=== PATIENT | female | born 1985 | race Caucasian/White ===

== ENCOUNTER 2017-07-01 13:22 | Day surgery (SDC) | payer OTHER ==
[2017-07-01] MEDS ORDERED: PROPOFOL 40 ML (14:20)
[2017-07-01] MEDS ORDERED: LIDOCAINE 100 MG SYRINGE (14:20)
== END 2017-07-01 17:23 | disposition home or self-care (01) ==
LOC: GIL 13:22
DX: K29.30 Chronic superficial gastritis without bleeding (principal); K21.0 Gastro-esophageal reflux disease with esophagitis; K25.9 Gastric ulcer, unspecified as acute or chronic, without hemorrhage or perforation; J45.909 Unspecified asthma, uncomplicated
CPT/HCPCS: 43239; 84703; 88305; 88312; 88313

== ENCOUNTER 2018-02-11 09:51 | Inpatient (IN) | payer OTHER ==
[~2018-02-11 09:51] MED LIST: CEFAZOLIN 1 GM INJ; CEFAZOLIN 2 GM/50 ML (PMX) 50 ML IVPB; SOD CHLORIDE 0.9% 1,000 ML IV
[2018-02-11 10:43] LABS: ADD MAN DIFF? NO
[2018-02-11 10:47] LABS: WHITE BLOOD COUNT 9.6 10^3/ul (4.8-10.8)
[2018-02-11 10:47] LABS: BASOPHIL # 0.1 10^3/ul (0.0-0.1); BASOPHILS % 0.8 % (0.0-2.0); EOSINOPHILS # 0.6 10^3/ul (0.0-0.5); HEMATOCRIT 43.6 % (37.0-47.0); HEMOGLOBIN 14.3 g/dl (12.0-16.0); LYMPHOCYTES # 2.7 10^3/ul (0.8-2.9); LYMPHOCYTES % 28.1 % (15.0-51.0); MEAN CORPUSCULAR HEMOGLOBIN 28.3 pg (29.0-33.0); MEAN CORPUSCULAR HGB CONC 32.8 g/dl (32.0-37.0); MEAN CORPUSCULAR VOLUME 86.2 fl (82.0-101.0); MEAN PLATELET VOLUME 9.3 fl (7.4-10.4); MONOCYTE # 0.5 10^3/ul (0.3-0.9); MONOCYTES % 5.6 % (0.0-11.0); NEUTROPHIL # 5.7 10^3/ul (1.6-7.5); PLATELET COUNT 378 10^3/UL (140-415); RED BLOOD COUNT 5.06 10^6/ul (4.20-5.40); RED CELL DISTRIBUTION WIDTH 13.6 % (11.5-14.5)
[2018-02-11 11:05] LABS: ALANINE AMINOTRANSFERASE 62 IU/L (13-69); ALBUMIN 4.6 g/dl (3.3-4.9); ALBUMIN/GLOBULIN RATIO 1.53; ALKALINE PHOSPHATASE 74 IU/L (42-121); ANION GAP 11 (5-13); ASPARTATE AMINO TRANSFERASE 67 IU/L (15-46); BILIRUBIN,INDIRECT 0.5 mg/dl (0-1.1); BILIRUBIN,TOTAL 0.5 mg/dl (0.2-1.3); BLOOD UREA NITROGEN 12 mg/dl (7-20); CALCIUM 9.6 mg/dl (8.4-10.2); CARBON DIOXIDE 22 mmol/L (21-31); CHLORIDE 107 mmol/L (97-110); CREATININE 1.01 mg/dl (0.44-1.00); Estimated GFR > 60 mL/min (>60); GLUCOSE 104 mg/dl (70-220); POTASSIUM 4.7 mmol/L (3.5-5.1); SODIUM 140 mmol/L (135-144); TOTAL PROTEIN 7.6 g/dl (6.1-8.1)
[2018-02-11 11:14] LABS: INR 0.92; PARTIAL THROMBOPLASTIN TIME 32.4 Sec (23.0-35.0); PROTIME 12.4 Sec (11.9-14.9)
[2018-02-11] MEDS ORDERED: BUPIVACAINE 0.25% (MPF) 30 ML INJ (11:55)
[2018-02-11] MEDS ORDERED: LIDOCAINE 2% (SDV) 5 ML INJ (12:11)
[2018-02-11] MEDS ORDERED: ROCURONIUM 50 MG INJ ×2 (12:11→14:51)
[2018-02-11] MEDS ORDERED: NEOSTIGMINE 3 MG/3 ML SYRINGE ×2 (12:11→14:46)
[2018-02-11] MEDS ORDERED: PROPOFOL 20 ML (12:11)
[2018-02-11] MEDS ORDERED: SUCCINYLCHOLINE CHLORIDE 100 MG/5 ML SYG IV (12:11)
[2018-02-11] MEDS ORDERED: GLYCOPYRROLATE 0.4 MG INJ ×2 (12:11→14:46)
[2018-02-11] MEDS: BUPIVACAINE 0.25% (MPF) 30 ML INJ INJ (12:30)
[2018-02-11] MEDS ORDERED: MEPERIDINE /PF (100 MG/2 ML) AMPULE (12:59)
[2018-02-11] MEDS ORDERED: MIDAZOLAM 1 MG/ML 2 ML INJ IV ×2 (13:30)
[2018-02-11] MEDS ORDERED: hydrALAzine 20 MG INJ IV (13:30)
[2018-02-11] MEDS ORDERED: ONDANSETRON 4 MG INJ IV (13:30)
[2018-02-11] MEDS ORDERED: EPHEDrine SULFATE 50 MG/5 ML SYG IV (13:30)
[2018-02-11] MEDS ORDERED: LABETALOL HCL 20MG INJ IV (13:30)
[2018-02-11] MEDS ORDERED: ALBUTEROL 0.083% (NEB) 2.5 MG/3 ML AMP HHN (13:30)
[2018-02-11] MEDS ORDERED: HYDROmorphONE 1 MG/5 ML IV SYRINGE IV ×6 (13:30)
[2018-02-11] MEDS ORDERED: METOCLOPRAMIDE 10 MG INJ IV ×2 (13:30)
[2018-02-11] MEDS ORDERED: MEPERIDINE 25 MG INJ IV (13:30)
[2018-02-11] MEDS ORDERED: DIPHENHYDRAMINE 50 MG INJ IV (13:30)
[2018-02-11] MEDS ORDERED: FENTAnyl 50 MCG/ML VIAL IV ×5 (13:30)
[2018-02-11] MEDS ORDERED: HYDROCODONE/APAP (5/325) TAB PO (15:00)
[2018-02-11 15:53] LABS: ADD MAN DIFF? NO
[2018-02-11 15:56] LABS: BASOPHILS % 0.3 % (0.0-2.0); EOSINOPHILS # 0.2 10^3/ul (0.0-0.5); EOSINOPHILS % 1.4 % (0.0-7.0); HEMATOCRIT 41.2 % (37.0-47.0); HEMOGLOBIN 13.3 g/dl (12.0-16.0); LYMPHOCYTES # 1.5 10^3/ul (0.8-2.9); LYMPHOCYTES % 10.9 % (15.0-51.0); MEAN CORPUSCULAR HEMOGLOBIN 28.1 pg (29.0-33.0); MEAN CORPUSCULAR HGB CONC 32.3 g/dl (32.0-37.0); MEAN CORPUSCULAR VOLUME 86.9 fl (82.0-101.0); MEAN PLATELET VOLUME 9.1 fl (7.4-10.4); MONOCYTE # 0.5 10^3/ul (0.3-0.9); MONOCYTES % 3.5 % (0.0-11.0); NEUTROPHIL # 11.1 10^3/ul (1.6-7.5); NEUTROPHILS % 83.4 % (39.0-77.0); PLATELET COUNT 347 10^3/UL (140-415); RED BLOOD COUNT 4.74 10^6/ul (4.20-5.40); RED CELL DISTRIBUTION WIDTH 13.5 % (11.5-14.5)
[2018-02-11 15:56] LABS: WHITE BLOOD COUNT 13.3 10^3/ul (4.8-10.8)
[2018-02-11] MEDS: ONDANSETRON 4 MG INJ IV (16:06)
[2018-02-11] MEDS: FENTAnyl 50 MCG/ML VIAL IV (16:06)
[2018-02-11] MEDS: CEFAZOLIN 2 GM/50 ML (PMX) 50 ML IVPB (16:06)
[2018-02-11 16:07] LABS: HOLD TRANSMISSIONS 1
[2018-02-11 16:14] LABS: ALANINE AMINOTRANSFERASE 138 IU/L (13-69); ALBUMIN 3.9 g/dl (3.3-4.9); ALBUMIN/GLOBULIN RATIO 1.56; ALKALINE PHOSPHATASE 65 IU/L (42-121); ANION GAP 10 (5-13); ASPARTATE AMINO TRANSFERASE 180 IU/L (15-46); BILIRUBIN,INDIRECT 0.1 mg/dl (0-1.1); BILIRUBIN,TOTAL 0.1 mg/dl (0.2-1.3); BLOOD UREA NITROGEN 12 mg/dl (7-20); CALCIUM 8.5 mg/dl (8.4-10.2); CARBON DIOXIDE 22 mmol/L (21-31); CHLORIDE 108 mmol/L (97-110); CREATININE 1.09 mg/dl (0.44-1.00); Estimated GFR 59 mL/min (>60); GLUCOSE 142 mg/dl (70-220); POTASSIUM 4.4 mmol/L (3.5-5.1); SODIUM 140 mmol/L (135-144); TOTAL PROTEIN 6.4 g/dl (6.1-8.1)
[2018-02-11] MEDS: ALBUTEROL/IPRATROPIUM (NEB) 3 ML AMP HHN ×2 (17:21→19:35)
[2018-02-11] MEDS: morphine 2 MG INJ IV (20:19)
[2018-02-11] MEDS: MONTELUKAST 10 MG TAB PO (21:51)
[2018-02-12] MEDS: SOD CHLORIDE 0.9% 1,000 ML IV ×4 (00:11→20:53)
[2018-02-12] MEDS: CEFAZOLIN 2 GM/50 ML (PMX) 50 ML IVPB ×2 (00:27→07:53)
[2018-02-12] MEDS: ALBUTEROL/IPRATROPIUM (NEB) 3 ML AMP HHN ×4 (01:20→19:33)
[2018-02-12] MEDS: morphine 2 MG INJ IV ×4 (02:11→18:50)
[2018-02-12 05:53] LABS: ADD MAN DIFF? NO
[2018-02-12 05:58] LABS: WHITE BLOOD COUNT 11.8 10^3/ul (4.8-10.8)
[2018-02-12 05:58] LABS: BASOPHIL # 0.1 10^3/ul (0.0-0.1); BASOPHILS % 0.4 % (0.0-2.0); EOSINOPHILS # 0.2 10^3/ul (0.0-0.5); EOSINOPHILS % 1.7 % (0.0-7.0); HEMATOCRIT 38.7 % (37.0-47.0); HEMOGLOBIN 12.3 g/dl (12.0-16.0); LYMPHOCYTES # 2.5 10^3/ul (0.8-2.9); LYMPHOCYTES % 21.2 % (15.0-51.0); MEAN CORPUSCULAR HEMOGLOBIN 28.1 pg (29.0-33.0); MEAN CORPUSCULAR HGB CONC 31.8 g/dl (32.0-37.0); MEAN CORPUSCULAR VOLUME 88.4 fl (82.0-101.0); MEAN PLATELET VOLUME 9.5 fl (7.4-10.4); MONOCYTE # 0.6 10^3/ul (0.3-0.9); MONOCYTES % 5.3 % (0.0-11.0); NEUTROPHIL # 8.4 10^3/ul (1.6-7.5); PLATELET COUNT 315 10^3/UL (140-415); RED BLOOD COUNT 4.38 10^6/ul (4.20-5.40); RED CELL DISTRIBUTION WIDTH 13.8 % (11.5-14.5)
[2018-02-12 06:28] LABS: ALANINE AMINOTRANSFERASE 121 IU/L (13-69); ALBUMIN 3.3 g/dl (3.3-4.9); ALKALINE PHOSPHATASE 58 IU/L (42-121); ANION GAP 9 (5-13); ASPARTATE AMINO TRANSFERASE 148 IU/L (15-46); BILIRUBIN,INDIRECT 0.6 mg/dl (0-1.1); BILIRUBIN,TOTAL 0.6 mg/dl (0.2-1.3); BLOOD UREA NITROGEN 8 mg/dl (7-20); CALCIUM 7.7 mg/dl (8.4-10.2); CARBON DIOXIDE 21 mmol/L (21-31); CHLORIDE 107 mmol/L (97-110); CREATININE 0.94 mg/dl (0.44-1.00); Estimated GFR > 60 mL/min (>60); GLUCOSE 100 mg/dl (70-220); POTASSIUM 3.8 mmol/L (3.5-5.1); SODIUM 137 mmol/L (135-144); TOTAL PROTEIN 6.3 g/dl (6.1-8.1)
[2018-02-12] MEDS: FLUTICASONE/VILANTEROL 200-25 INH DEVICE INH (09:00)
[2018-02-12 15:14] LABS: TROPONIN-I < 0.012 ng/ml (0.000-0.120)
[2018-02-12] MEDS: MONTELUKAST 10 MG TAB PO (20:58)
[2018-02-12 21:00] LABS: TROPONIN-I < 0.012 ng/ml (0.000-0.120)
[2018-02-13] MEDS: morphine 2 MG INJ IV (01:10)
[2018-02-13] MEDS: SOD CHLORIDE 0.9% 1,000 ML IV (01:14)
[2018-02-13 02:04] LABS: TROPONIN-I < 0.012 ng/ml (0.000-0.120)
[2018-02-13 05:18] LABS: ADD MAN DIFF? NO
[2018-02-13 05:20] LABS: BASOPHIL # 0.1 10^3/ul (0.0-0.1); BASOPHILS % 0.5 % (0.0-2.0); EOSINOPHILS # 0.4 10^3/ul (0.0-0.5); EOSINOPHILS % 3.5 % (0.0-7.0); HEMATOCRIT 38.3 % (37.0-47.0); HEMOGLOBIN 12.3 g/dl (12.0-16.0); LYMPHOCYTES # 2.5 10^3/ul (0.8-2.9); LYMPHOCYTES % 22.6 % (15.0-51.0); MEAN CORPUSCULAR HEMOGLOBIN 28.1 pg (29.0-33.0); MEAN CORPUSCULAR HGB CONC 32.1 g/dl (32.0-37.0); MEAN CORPUSCULAR VOLUME 87.6 fl (82.0-101.0); MEAN PLATELET VOLUME 9.3 fl (7.4-10.4); MONOCYTE # 0.8 10^3/ul (0.3-0.9); MONOCYTES % 7.5 % (0.0-11.0); NEUTROPHIL # 7.2 10^3/ul (1.6-7.5); NEUTROPHILS % 65.5 % (39.0-77.0); PLATELET COUNT 273 10^3/UL (140-415); RED BLOOD COUNT 4.37 10^6/ul (4.20-5.40); RED CELL DISTRIBUTION WIDTH 13.8 % (11.5-14.5)
[2018-02-13 05:43] LABS: CREATINE KINASE 159 IU/L (23-200)
[2018-02-13 05:48] LABS: ALANINE AMINOTRANSFERASE 116 IU/L (13-69); ALBUMIN/GLOBULIN RATIO 1.11; ALKALINE PHOSPHATASE 61 IU/L (42-121); ANION GAP 4 (5-13); ASPARTATE AMINO TRANSFERASE 120 IU/L (15-46); BILIRUBIN,INDIRECT 0.4 mg/dl (0-1.1); BILIRUBIN,TOTAL 0.4 mg/dl (0.2-1.3); BLOOD UREA NITROGEN 3 mg/dl (7-20); CARBON DIOXIDE 25 mmol/L (21-31); CHLORIDE 109 mmol/L (97-110); CREATININE 0.82 mg/dl (0.44-1.00); Estimated GFR > 60 mL/min (>60); GLUCOSE 105 mg/dl (70-220); MAGNESIUM 2.2 mg/dl (1.7-2.5); POTASSIUM 4.2 mmol/L (3.5-5.1); SODIUM 138 mmol/L (135-144); TOTAL PROTEIN 5.7 g/dl (6.1-8.1)
[2018-02-13 05:53] LABS: CK-MB 1.01 ng/ml (0.0-2.4)
[2018-02-13] MEDS: ALBUTEROL/IPRATROPIUM (NEB) 3 ML AMP HHN ×2 (07:53→14:00)
[2018-02-13] MEDS: FLUTICASONE/VILANTEROL 200-25 INH DEVICE INH (08:58)
== END 2018-02-13 16:20 | disposition home or self-care (01) | DRG 328 ==
LOC: REC 09:51 → 2NE 16:30
PROC: 0DV40ZZ Restriction of Esophagogastric Junction, Open Approach (ICD-10-PCS; principal; 2018-02-11 12:28)
PROC: 0BU Respiratory System, Supplement (ICD-10-PCS; 2018-02-11 12:28)
DX: K21.9 Gastro-esophageal reflux disease without esophagitis (principal); K44.9 Diaphragmatic hernia without obstruction or gangrene; F17.210 Nicotine dependence, cigarettes, uncomplicated; J45.909 Unspecified asthma, uncomplicated
CPT/HCPCS: 71045; 80053; 82550; 82553; 83735; 84484; 84703; 85025; 85610; 85730; 93005; 93306; 93970; 94640; 94664